=== PATIENT | male | born 1985 | race Caucasian/White ===

== ENCOUNTER 2023-05-24 16:31 | Emergency (ER) | payer SELFPAY ==
[2023-05-24 16:34] VITALS: BP 139/92; BMI 21.3
[2023-05-24 17:00] VITALS: BP 136/92
[2023-05-24 18:00] VITALS: BP 117/72
--- NOTE | 2023-05-24 18:38 | ED.GENMED ---
History of Present Illness
General
Chief Complaint: Skin Problem
Time Seen by Provider: 05/24/23 18:09
Travel History
Have you had any contact with someone who has COVID-19?: No
Do you have any symptoms of coronavirus? Fever > 100 degrees, chills, cough, shortness of breath, sore throat, loss of taste or smell, muscle aches, or headache?: No
History of Present Illness
History of Present Illness:
37-year-old male presents the emergency department under custody of police for medical clearance. He has an abscess to the right inner thigh, on arrival to the correctional facility he was deferred to the hospital for further evaluation. He does
have a history of IV drug abuse but denies injecting in this area. Denies any fevers or chills.
Review of Systems
Review of Systems
Allergies reviewed?: Yes
All Other Systems: ROS reviewed and negative except as documented in HPI and ROS
Phy Exam
Physical Exam
Physical Exam:
GEN: Well appearing, NAD, WDWN
HEENT: Oral mucosa moist, no scleral icterus
Cardiac: Regular rate
Lung: No respiratory distress, no tachypnea
MSK: No gross deformity or injuries
Skin: Good color, no pallor or jaundice,. 2 cm indurated abscess to the right medial proximal thigh with mild surrounding erythema. Active purulent discharge noted
Neuro: AO x3, moves all extremities freely
Psych: Calm, cooperative
Course
Vital Signs
Initial and Last Documented VS:
Initial Vital Signs
Temp Pulse Resp BP Pulse Ox
98.3 F 66 17 139/92 100
05/24/23 16:34 05/24/23 16:34 05/24/23 16:34 05/24/23 16:34 05/24/23 16:34
Last Documented Vital Signs
Temp Pulse Resp BP Pulse Ox
98.3 F 66 17 117/72 99
05/24/23 16:34 05/24/23 16:34 05/24/23 16:34 05/24/23 18:00 05/24/23 18:45
MDM/Problems Addressed
MDM/Problems Addressed:
The abscess was anesthetized with 1% lidocaine with epinephrine and incision was made in a linear fashion. Blunt dissection and debridement of the wound was conducted with scant purulent and bloody discharge. The wound was left open for further
drainage. Has he is high risk given his history of IV drug abuse will start p.o. antibiotics, will cover for MRSA with Bactrim
*Critical Care Note
Total Time (30-74mins, 75-104mins- exclusive of procedures): Not Applicable
ED Attending Note
-
Portions of this chart may have been created with voice recognition software.� Occasional wrong word or��sound alike� substitutions may have occurred due to the inherent limitations of voice recognition software.
Discharge Plan
Departure
Patient Disposition: Home (Routine Discharge)
Date of Disposition: 05/24/23
Time of Disposition: 18:38
Patient with high blood pressure during this ER visit?: No
Discharge Problem:
Abscess of right thigh
Instructions: Skin Abscess
Prescriptions:
New
sulfamethoxazole-trimethoprim [Bactrim DS] 800-160 mg tablet
1 tab PO BID 7 Days Qty: 14 0RF
No Action
buprenorphine-naloxone [Suboxone] 8-2 mg Film
1 film BUCCAL DAILY
Referrals:
NONE,* [Family Provider] -
Activity Restrictions/Additional Instructions:
Daily wound care with soap and water/saline rinses
Wound is left open to allow for further drainage
Bactrim DS twice daily for 7 days
MIR CALABRESE IS MEDICALLY CLEARED FOR INCARCERATION
Interventions
Interventions:
*Risk Screen - Suicide Last Done: 05/24/23 16:41
*General Assessment Last Done: 05/24/23 16:40
*Neglect/Abuse Screening Last Done: 05/24/23 16:41
ED- Fall Risk Assessment Last Done: 05/24/23 16:43
*ED COVID-19 Vaccine History Last Done: 05/24/23 16:40
*Nursing Disposition Last Done: 05/24/23 18:55
ED-Skin Assessment Last Done: 05/24/23 16:41
Discharge Date and Time
Discharge Date/Time: 05/24/23 18:58
== END 2023-05-24 18:58 | disposition home or self-care (01) ==
LOC: EMR 16:31
PROVIDERS: EMERGENCY PHYSICIAN Emergency Medicine
DX: L02.415 Cutaneous abscess of right lower limb (principal)
CPT/HCPCS: 99283; 10060